=== PATIENT | male | born 1955 | race African-American/Black ===

== ENCOUNTER 2017-10-08 09:50 | Inpatient (IN) ==
[2017-10-08 14:01] LABS: Basophils % 0.7 % (0.0-0.8); Eosinophils # 0.5 10*3/uL (0.0-0.87); Eosinophils % 12.5 % (0.00-10.9); Hematocrit 28.3 VOL% (42.0-52.0); Hemoglobin 9.1 GM/DL (14.0-18.0); Immature Granulocytes % 0.2 %; Immature Granulocytes Absolute 0.01 #; Lymphocytes # 0.9 10*3/uL (1.4-4.0); Lymphocytes % 20.6 % (21.2-54.2); Mean Corpuscular HGB Conc 32.2 GM/DL (32-36); Mean Corpuscular Hemoglobin 28 PG (27-34); Mean Corpuscular Volume 87.1 FL (87-102); Mean Platelet Volume 10.5 FL (9.6-12.0); Monocytes # 0.3 10*3/uL (0.11-0.8); Monocytes % 6.7 % (1.7-12.7); Neutrophils # 2.6 10*3/uL (1.4-7.4); Neutrophils % 59.3 % (38.7-73.9); Platelet Count 203 T/CUMM (130-400); Red Blood Count 3.25 MC/CUMM (3.8-5.5); Red Cell Distribution Width 16.5 % (9.3-17.3); White Blood Count 4.3 T/CUMM (4-12)
[2017-10-08 14:43] LABS: Albumin 3.9 G/DL (3.4-5.0); Bilirubin,Total 0.6 MG/DL (0.2-1.0); Calcium 9.6 MG/DL (8.5-10.1); Osmolality,Calculated 284.8 MOS/KG (273-304); Potassium 5.1 MMOL/L (3.5-5.1); Total Protein 7.9 G/DL (6.4-8.3)
[2017-10-08 16:08] LABS: Eosinophils 15 % (0-10); Lymphocytes 24 % (20-55); Platelet Estimate Normal; Segmented Neutrophils 58 % (50-85); Total Cells Counted 100
[2017-10-08 16:09] LABS: Anisocytosis 1+; Polychromasia Few
[2017-10-08] MEDS ORDERED: DEXTROSE 50% 25 GM/50 ML VIAL IV PRN (17:35)
[2017-10-08] MEDS ORDERED: ACETAMINOPHEN 325 MG TABLET PO PRN (17:35)
[2017-10-08] MEDS ORDERED: ONDANSETRON 4 MG/2 ML VIAL IV PRN (17:35)
[2017-10-08] MEDS ORDERED: GLUCAGON 1 MG VIAL IM PRN (17:35)
[2017-10-08] MEDS: INSULIN LISPRO 100 UNIT/ML SUBCUT SCH (21:28)
[2017-10-08] MEDS: guaiFENesin/CODEINE 5 ML LIQUID PO PRN (21:37)
[2017-10-08] MEDS: NIFEdipine 10 MG CAPSULE PO PRN (21:37)
[2017-10-09 04:59] LABS: Basophils % 0.8 % (0.0-0.8); Eosinophils # 0.7 10*3/uL (0.0-0.87); Eosinophils % 14.2 % (0.00-10.9); Hematocrit 28.1 VOL% (42.0-52.0); Immature Granulocytes % 0.4 %; Immature Granulocytes Absolute 0.02 #; Lymphocytes % 20.3 % (21.2-54.2); Mean Corpuscular Hemoglobin 28 PG (27-34); Mean Platelet Volume 10.8 FL (9.6-12.0); Monocytes # 0.3 10*3/uL (0.11-0.8); Monocytes % 5.9 % (1.7-12.7); Neutrophils # 2.8 10*3/uL (1.4-7.4); Neutrophils % 58.4 % (38.7-73.9); Platelet Count 196 T/CUMM (130-400); Red Blood Count 3.23 MC/CUMM (3.8-5.5); Red Cell Distribution Width 16.6 % (9.3-17.3); White Blood Count 4.7 T/CUMM (4-12)
[2017-10-09 05:25] LABS: Eosinophils 16 % (0-10); Hypochromasia 1+; Lymphocytes 20 % (20-55); Microcytosis 1+; Segmented Neutrophils 58 % (50-85); Total Cells Counted 100
[2017-10-09 05:26] LABS: Ovalocytes Slight; Platelet Estimate Adequate
[2017-10-09 05:32] LABS: Albumin 3.8 G/DL (3.4-5.0); Bilirubin,Total 0.8 MG/DL (0.2-1.0); Calcium 9.1 MG/DL (8.5-10.1); Osmolality,Calculated 298.3 MOS/KG (273-304); Potassium 5.5 MMOL/L (3.5-5.1); Total Protein 7.5 G/DL (6.4-8.3)
[2017-10-09] MEDS: NIFEdipine 10 MG CAPSULE PO PRN (06:55)
[2017-10-09] MEDS: guaiFENesin/CODEINE 5 ML LIQUID PO PRN (06:55)
[2017-10-09] MEDS: INSULIN LISPRO 100 UNIT/ML SUBCUT SCH ×4 (07:35→20:12)
[2017-10-09] MEDS ORDERED: DOXAZOSIN 4 MG TABLET PO SCH (09:00)
[2017-10-09] MEDS: amLODIPine 10 MG TABLET PO SCH (10:23)
[2017-10-09] MEDS: PANTOPRAZOLE 40 MG TABLET PO SCH (10:24)
[2017-10-09] MEDS: FUROSEMIDE 40 MG TABLET PO SCH (10:24)
[2017-10-10] MEDS: NIFEdipine 10 MG CAPSULE PO PRN (05:00)
[2017-10-10] MEDS: INSULIN LISPRO 100 UNIT/ML SUBCUT SCH ×4 (07:58→21:10)
[2017-10-10] MEDS: DOXAZOSIN 4 MG TABLET PO SCH ×2 (09:32→21:10)
[2017-10-10] MEDS: FUROSEMIDE 40 MG TABLET PO SCH ×2 (09:32→21:10)
[2017-10-10] MEDS: amLODIPine 10 MG TABLET PO SCH (09:33)
[2017-10-10] MEDS: PANTOPRAZOLE 40 MG TABLET PO SCH (09:33)
[2017-10-10] MEDS: hydrALAZINE 25 MG TABLET PO SCH ×2 (13:37→21:10)
[2017-10-11 06:26] LABS: Calcium 8.8 MG/DL (8.5-10.1); Osmolality,Calculated 299.1 MOS/KG (273-304); Potassium 5.6 MMOL/L (3.5-5.1)
[2017-10-11 06:27] LABS: Basophils % 0.8 % (0.0-0.8); Eosinophils # 0.6 10*3/uL (0.0-0.87); Eosinophils % 14.8 % (0.00-10.9); Hematocrit 26.2 VOL% (42.0-52.0); Hemoglobin 8.2 GM/DL (14.0-18.0); Immature Granulocytes % 0.3 %; Immature Granulocytes Absolute 0.01 #; Lymphocytes # 1.1 10*3/uL (1.4-4.0); Lymphocytes % 27.3 % (21.2-54.2); Mean Corpuscular HGB Conc 31.3 GM/DL (32-36); Mean Corpuscular Hemoglobin 28 PG (27-34); Mean Corpuscular Volume 88.5 FL (87-102); Mean Platelet Volume 10.8 FL (9.6-12.0); Monocytes # 0.3 10*3/uL (0.11-0.8); Monocytes % 8.6 % (1.7-12.7); Neutrophils # 1.9 10*3/uL (1.4-7.4); Neutrophils % 48.2 % (38.7-73.9); Platelet Count 163 T/CUMM (130-400); Red Blood Count 2.96 MC/CUMM (3.8-5.5); Red Cell Distribution Width 16.2 % (9.3-17.3); White Blood Count 3.8 T/CUMM (4-12)
[2017-10-11 06:57] LABS: Eosinophils 9 % (0-10); Lymphocytes 38 % (20-55); Microcytosis 1+; Platelet Estimate Adequate; Segmented Neutrophils 52 % (50-85); Total Cells Counted 100
[2017-10-11] MEDS: INSULIN LISPRO 100 UNIT/ML SUBCUT SCH ×4 (07:07→21:42)
[2017-10-11] MEDS: DOXAZOSIN 4 MG TABLET PO SCH ×2 (10:14→21:41)
[2017-10-11] MEDS: amLODIPine 10 MG TABLET PO SCH (10:14)
[2017-10-11] MEDS: FUROSEMIDE 40 MG TABLET PO SCH ×2 (10:14→21:41)
[2017-10-11] MEDS: hydrALAZINE 25 MG TABLET PO SCH (10:14)
[2017-10-11] MEDS: PANTOPRAZOLE 40 MG TABLET PO SCH (10:14)
[2017-10-12] MEDS: INSULIN LISPRO 100 UNIT/ML SUBCUT SCH ×2 (08:42→12:43)
[2017-10-12] MEDS: FUROSEMIDE 40 MG TABLET PO SCH (08:42)
[2017-10-12] MEDS: PANTOPRAZOLE 40 MG TABLET PO SCH (08:42)
[2017-10-12] MEDS: DOXAZOSIN 4 MG TABLET PO SCH (08:42)
[2017-10-12] MEDS: amLODIPine 10 MG TABLET PO SCH (08:42)
[2017-10-12 11:38] VITALS: BP 134/69
== END 2017-10-12 14:20 | disposition home or self-care (01) | DRG 291 ==
LOC: N.ED 09:50 → N.EDINP 09:50 → SUATTDRO 17:34 → N.3E 18:14
PROVIDERS: ATTEND Hospitalist